=== PATIENT | female | born 1980 | race Caucasian/White ===

== ENCOUNTER 2016-06-29 16:24 | Emergency (ER) | payer OTHER ==
[2016-06-29 16:36] VITALS: BP 133/92; PULSE 78; TEMP 98; BMI 31.7
[2016-06-29] MEDS ORDERED: morphine CARPU-JECT 2 MG/1 ML DISP.SYRIN ONE (16:36)
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
[2016-06-29] MEDS ORDERED: morphine CARPU-JECT 2 MG/1 ML DISP.SYRIN IVPUSH ONE ×2 (16:43→17:35)
[2016-06-29] MEDS ORDERED: IBUPROFEN 600 MG TABLET (FP) PO ONE (18:25)
[2016-06-29] MEDS ORDERED: OXYCODONE/APAP 5/325MG COMBO TABLET PO ONE (19:23)
[2016-06-29] MEDS ORDERED: OXYCODONE/APAP 5/325MG COMBO TABLET ONE (19:25)
[2016-06-29] MEDS ORDERED: ONDANSETRON *ODT* 4 MG TABLET SL ONE (19:29)
[2016-06-29] MEDS ORDERED: ONDANSETRON *ODT* 4 MG TABLET ONE (19:31)
== END 2016-06-29 19:37 | disposition home or self-care (01) ==
LOC: JER 16:24
PROC: 2W39X1Z Immobilization of Left Upper Extremity using Splint (ICD-10-PCS; principal; 2016-06-29)
DX: S52.592A Other fractures of lower end of left radius, initial encounter for closed fracture (principal); W11.XXXA Fall on and from ladder, initial encounter; Y93.89 Activity, other specified; Y92.030 Kitchen in apartment as the place of occurrence of the external cause; Y99.8 Other external cause status
CPT/HCPCS: 29126; 73110-TC-LT; 73130-TC-LT; 99283-25

== ENCOUNTER 2017-06-07 12:23 | Emergency (ER) | payer OTHER ==
[2017-06-07 12:33] VITALS: BP 119/75; PULSE 66; TEMP 98.2; BMI 31.1
[2017-06-07] MEDS ORDERED: ERYTHROMYCIN 0.5% OPHTHALMIC OINTMENT 3.5 GM TUBE OS ONE (13:24)
[2017-06-07] MEDS ORDERED: ERYTHROMYCIN 0.5% OPHTHALMIC OINTMENT 3.5 GM TUBE ONE (13:29)
--- NOTE | 2017-06-07 13:29 | PDOC ---
History of Present Illness - General Chief Complaint: Eye Problem Stated Complaint: EYE PROBLEM Time Seen by Provider: 06/07/17 13:13 History Source: Patient Exam Limitations: No Limitations - History of Present Illness Initial Comments: 06/07/17 13:25 Stye , will continue hot compresses and add erythromycin ointment for lubricating purpose. Timing/Duration: 24 hours Severity: mild, moderate Associated Symptoms: reports: malaise. denies: denies symptoms, fever/chills Past History - Travel Traveled outside of the country in the last 30 days: No Close contact w/someone who was outside of country & ill: No - Past Medical History Allergies/Adverse Reactions: Allergies Allergy/AdvReac Type Severity Reaction Status Date / Time No Known Allergies Allergy Verified 06/07/17 12:31 Home Medications: Ambulatory Orders Erythromycin 0.5% Eye Ointment [Erythromycin 0.5% Eye Ointment -] 1 applic OD TID #1 tube 06/07/17 COPD: No - Surgical History Abdominal Surgery: Yes (diego pa[facility]) Cardiac Surgery: Yes (1) - Suicide/Smoking/Psychosocial Hx Smoking History: Former smoker Have you smoked in the past 12 months: Yes Number of Cigarettes Smoked Daily: 5 If you are a former smoker, when did you quit?: 2018 Information on smoking cessation initiated: Yes 'Breaking Loose' booklet given: 06/07/17 Hx Alcohol Use: No Drug/Substance Use Hx: No Substance Use Type: None Review of Systems - Review of Systems Able to Perform ROS?: Yes Is the patient limited Macedonian proficient: Yes Constitutional: Yes: Symptoms Reported, See HPI, Malaise. No: Fever, Loss of Appetite HEENTM: Yes: Symptoms Reported, See HPI, Eye Pain, Tearing (with tenderness and lesion to right lower lid) Respiratory: No: Symptoms reported Cardiac (ROS): No: Symptoms Reported Integumentary: Yes: Symptoms Reported, See HPI, Erythema All Other Systems: Reviewed and Negative *Physical Exam - Vital Signs Last Vital Signs Temp Pulse Resp BP Pulse Ox 98.2 F 66 18 119/75 100 06/07/17 12:28 06/07/17 12:28 06/07/17 12:28 06/07/17 12:28 06/07/17 12:28 - Physical Exam General Appearance: Yes: Nourished, Appropriately Dressed, Apparent Distress, Mild Distress HEENT: positive: ALEKSANDR, TMs Normal, Pharynx Normal, Nasal Congestion, Other ( stye noted in the inner aspect of right lower lid, that is pointing. Has some mild erythema to the lid, and injection to the area. Has no orbital tenderness, no drainage from eyes or conjunctiva. Vision is within normal limits.) Neck: positive: Normal Thyroid, Supple, Lymphadenopathy (R), Lymphadenopathy (L) Respiratory/Chest: positive: Lungs Clear Gastrointestinal/Abdominal: positive: Soft. negative: Tender Extremity: positive: Normal Capillary Refill, Normal Inspection, Normal Range of Motion Integumentary: positive: Normal Color Neurologic: positive: undraped artist model II-XII NML intact, Fully Oriented, Alert, Normal Mood/ Affect, Normal Response, Motor Strength 5/5 *DC/Admit/Observation/Transfer Diagnosis at time of Disposition: Hordeolum externum of lower eyelid - Discharge Dispostion Disposition: HOME Condition at time of disposition: Stable Admit: No - Referrals Referrals: Rachel Levine MD [Staff Physician] - - Patient Instructions Printed Discharge Instructions: DI for Blepharitis Additional Instructions: Rest, avoid rubbing eyes Wash hands, use eye ointment as directed re-times a day for lubricating purposes , wash hands after use Tylenol or ibuprofen for pain relief Avoid contact with others until redness and discharge is gone from eyes. Followup with ophthalmology in one to 2 days for thorough exam Return to emergency department for worsened pain, swelling, vision problems. - Post Discharge Activity Forms/Work/School Notes: Back to Work
== END 2017-06-07 13:35 | disposition home or self-care (01) ==
LOC: JERFT 12:23
DX: H00.012 Hordeolum externum right lower eyelid (principal)
CPT/HCPCS: 99281-25

== ENCOUNTER 2017-07-23 09:40 | Emergency (ER) | payer OTHER ==
[2017-07-23 09:58] VITALS: BP 118/68; PULSE 81; TEMP 98.6; BMI 31.7
--- NOTE | 2017-07-23 10:27 | PDOC ---
History of Present Illness - General Chief Complaint: Cold Symptoms Stated Complaint: CONGESTION, COLD LIKE SYMPTOMS Time Seen by Provider: 07/23/17 10:14 Exam Limitations: No Limitations - History of Present Illness Initial Comments: 07/23/17 10:23 c/o cough sore throat post nasal drip no fever no chills non smoker Severity: mild Past History - Past Medical History Allergies/Adverse Reactions: Allergies Allergy/AdvReac Type Severity Reaction Status Date / Time No Known Allergies Allergy Verified 07/23/17 09:54 Home Medications: Ambulatory Orders Fluticasone Prop 0.05% Nasal [Flonase -] 1 - 2 spray NS DAILY #1 spray.pump COPD: No Other medical history: DENIES. - Surgical History Abdominal Surgery: Yes (diego paula) Cardiac Surgery: Yes (1) - Suicide/Smoking/Psychosocial Hx Smoking History: Former smoker Have you smoked in the past 12 months: Yes Number of Cigarettes Smoked Daily: 5 If you are a former smoker, when did you quit?: 2018 Information on smoking cessation initiated: No 'Breaking Loose' booklet given: 06/07/17 Hx Alcohol Use: No Drug/Substance Use Hx: No Substance Use Type: None Review of Systems - Review of Systems Able to Perform ROS?: Yes Is the patient limited Pashto proficient: No Constitutional: No: Symptoms Reported HEENTM: Yes: Symptoms Reported Respiratory: Yes: Cough *Physical Exam - Vital Signs Last Vital Signs Temp Pulse Resp BP Pulse Ox 98.6 F 81 19 118/68 99 07/23/17 09:54 07/23/17 09:54 07/23/17 09:54 07/23/17 09:54 07/23/17 09:54 - Physical Exam General Appearance: Yes: Nourished, Appropriately Dressed HEENT: positive: EOMI, ALEKSANDR, Normal ENT Inspection, TMs Normal, Pharyngeal Erythema (post nasal drip ) Neck: positive: Supple. negative: Tender, Lymphadenopathy (R), Lymphadenopathy (L) Respiratory/Chest: positive: Lungs Clear, Normal Breath Sounds. negative: Chest Tender Cardiovascular: positive: Regular Rhythm, Regular Rate Gastrointestinal/Abdominal: positive: Normal Bowel Sounds, Soft Musculoskeletal: positive: Normal Inspection Extremity: positive: Normal Capillary Refill, Normal Inspection, Normal Range of Motion Integumentary: positive: Normal Color, Dry, Warm Neurologic: positive: Fully Oriented, Alert, Normal Mood/Affect, Normal Response , Motor Strength 07/04 Medical Decision Making - Medical Decision Making 07/23/17 10:25 cc: sore throat , post nasal drip cough non smoker no shortness of breath *DC/Admit/Observation/Transfer Diagnosis at time of Disposition: Post-nasal drip - Discharge Dispostion Disposition: HOME Condition at time of disposition: Good - Prescriptions Prescriptions: Fluticasone Prop 0.05% Nasal [Flonase -] 1 - 2 spray NS DAILY #1 spray.pump - Referrals Referrals: ON STAFF,NOT [Primary Care Provider] - - Patient Instructions Printed Discharge Instructions: How to Avoid a Cold or Flu Additional Instructions: gargle with warm salt water tea with honey and lemon drink pleanty of water use flonase as directed follow with your doctor if any worsening symptoms - Post Discharge Activity
== END 2017-07-23 10:39 | disposition home or self-care (01) ==
LOC: JERFT 09:40
DX: J30.9 Allergic rhinitis, unspecified (principal); Z87.891 Personal history of nicotine dependence
CPT/HCPCS: 87070; 87430; 99281-25

== ENCOUNTER 2019-10-09 13:19 | Emergency (ER) | payer OTHER ==
[2019-10-09 13:23] VITALS: BP 139/92; PULSE 93; TEMP 98; BMI 32.1
[2019-10-09] MEDS ORDERED: diazePAM 5 MG TABLET PO ONE (13:30)
[2019-10-09] MEDS ORDERED: KETOROLAC TROMETHAMINE 60 MG/2 ML VIAL IM ONE (13:30)
[2019-10-09] MEDS ORDERED: LIDOCAINE 5% TOPICAL PATCH TP ONE (13:31)
[2019-10-09] MEDS ORDERED: KETOROLAC TROMETHAMINE 60 MG/2 ML VIAL ONE (13:35)
[2019-10-09] MEDS ORDERED: LIDOCAINE 5% TOPICAL PATCH ONE (13:35)
[2019-10-09] MEDS ORDERED: diazePAM 5 MG TABLET ONE (13:35)
--- NOTE | 2019-10-09 14:03 | PDOC ---
History of Present Illness - General Chief Complaint: Head/Neck problem Stated Complaint: NECK PAIN History Source: Patient Exam Limitations: No Limitations - History of Present Illness Initial Comments: 10/09/19 13:41 Patient is a 39-year-old female with history of plastic surgery and complaining of right neck pain radiating down the arm x1 week. Patient states that she woke up one morning with the pain, felt that she slept wrong on her arm. States that the pain was not as severe as today and so she used [id number] pain creams and sprays, hot and cold compresses. States last night that the pain worsened now 9/10 and associated with tingling in the right arm. She is unable to turn the neck to the ipsilateral side. Denies rash, fever, chills. PMHX: as above PSOCHX: FamHX: Noncontributory ALL:NKDA GENERAL/CONSTITUTIONAL: [No fever or chills. No weakness. No weight change.] HEAD, EYES, EARS, NOSE AND THROAT: [No change in vision. No ear pain or discharge. No sore throat.] CARDIOVASCULAR: [No chest pain or shortness of breath.] RESPIRATORY: [No cough, wheezing, or hemoptysis.] GASTROINTESTINAL: [No nausea, vomiting, diarrhea or constipation. No rectal bleeding.] GENITOURINARY: [No dysuria, frequency, or change in urination.] MUSCULOSKELETAL: [(+) joint or muscle swelling or pain. (+) neck or back pain.] SKIN AND BREASTS: [No rash or easy bruising.] NEUROLOGIC: [No headache, vertigo, loss of consciousness, or loss of sensation.] PSYCHIATRIC: [No depression or anxiety.] ENDOCRINE: [No increased thirst. No abnormal weight change.] HEMATOLOGIC/LYMPHATIC: [No anemia, easy bleeding, or history of blood clots.] ALLERGIC/IMMUNOLOGIC: [No hives or skin allergy. No latex allergy.] GENERAL: [The patient is awake, alert, and fully oriented, in moderate acute dis tress, crying.] HEAD: [Normal with no signs of trauma.] EYES: [Pupils equal, round and reactive to light, extraocular movements intact, sclera anicteric, conjunctiva clear.] ENT: [Ears normal, nares patent, oropharynx clear without exudates. Moist mucous membranes.] NECK: [decreased range of motion to neck, (+) tenderness to the right paraspinal muscles, neck supple without lymphadenopathy, JVD, or masses.] LUNGS: [Breath sounds equal, clear to auscultation bilaterally. No wheezes, and no crackles.] HEART: [Regular rate and rhythm, normal S1 and S2 without murmur, rub.] ABDOMEN: [Soft, nontender, normoactive bowel sounds. No guarding, no rebound. No masses.] EXTREMITIES: [Normal range of motion, no edema. No clubbing or cyanosis. No cords, erythema, or tenderness.] NEUROLOGICAL: [Cranial nerves II through XII grossly intact. strength 5/5 b/l, sensory intact, Normal speech, normal gait.] PSYCH: [Normal mood, normal affect.] SKIN: [Warm, Dry, normal turgor, no rashes or lesions noted.] Past History - Medical History Allergies/Adverse Reactions: Allergies Allergy/AdvReac Type Severity Reaction Status Date / Time No Known Allergies Allergy Verified 10/09/19 13:23 Home Medications: Ambulatory Orders Cyclobenzaprine HCl [Flexeril -] 10 mg PO TID #21 tablet 10/09/19 Ibuprofen [Motrin -] 600 mg PO QID #28 tablet 10/09/19 Oxycodone HCl/Acetaminophen [Percocet 5/325 -] 1 tab PO Q4H #15 tablet MDD 6 10/09/19 COPD: No - Surgical History Abdominal Surgery: Yes (diego paula) Cardiac Surgery: Yes (1) - Reproductive History Is Patient Now?: No - Psycho-Social/Smoking History Smoking History: Current every day smoker Have you smoked in the past 12 months: Yes Number of Cigarettes Smoked Daily: 5 If you are a former smoker, when did you quit?: 2018 Information on smoking cessation initiated: No 'Breaking Loose' booklet given: 06/07/17 - Substance Abuse Hx (Audit-C & DAST Scrn) How often the patient has a drink containing alcohol: Never Score: In Men: 4 or > Positive; In Women: 3 or > Positive: 0 Screen Result (Pos requires Nsg. Audit-10AR): Negative *Physical Exam - Vital Signs Last Vital Signs Temp Pulse Resp BP Pulse Ox 98 F 93 H 18 139/92 100 10/09/19 13:21 10/09/19 13:21 10/09/19 13:21 10/09/19 13:21 10/09/19 13:21 ED Treatment Course - LABORATORY CBC & Chemistry Diagram: 10/09/19 02:29 10/09/19 14:40 Medical Decision Making - Medical Decision Making 10/09/19 13:41 Patient is a 39-year-old female with history of plastic surgery and complaining of right neck pain radiating down the arm x1 week. Patient states that she woke up one morning with the pain, felt that she slept wrong on her arm. States that the pain was not as severe as today and so she used [id number] pain creams and sprays, hot and cold compresses. States last night that the pain worsened now 11/09 and associated with tingling in the right arm. She is unable to turn the neck to the ipsilateral side. Denies rash, fever, chills. Symptoms consistent with muscle spasm to the neck, cervical radicular pain. Trial with Lidoderm patch, Toradol 30 mg IM, Valium 5 mg p.o. warm compress. Reassess. 10/09/19 14:51 Called by patient's boyfriend, found patient screaming in pain. IV line established, bloods drawn and written for morphine 4 mg IV. X-ray cervical spine Will reassess X-ray reviewed no acute fracture. 10/09/19 16:23 Patient feels improved requesting to be discharged home. She has full range of motion of the neck. I discussed the physical exam findings, ancillary test results and final diagnoses with the patient. I answered all of the patient's questions. The patient was satisfied with the care received and felt comfortable with the dis charge plan and treatment plan. The Patient agrees to follow up with the primary care physician within 24-72 hours. Discharge - Discharge Information Problems reviewed: Yes Clinical Impression/Diagnosis: Muscle spasms of neck Condition: Stable Disposition: HOME - Additional Discharge Information Prescriptions: Cyclobenzaprine HCl [Flexeril -] 10 mg PO TID #21 tablet Ibuprofen [Motrin -] 600 mg PO QID #28 tablet Oxycodone HCl/Acetaminophen [Percocet 5/325 -] 1 tab PO Q4H #15 tablet MDD 6 - Follow up/Referral Referrals: Elbert Cheney [Primary Care Provider] - - Patient Discharge Instructions Patient Printed Discharge Instructions: DI for Neck Pain Additional Instructions: Follow-up with your primary care doctor in 1 to 2 days. Return to the emergency room for worsening symptoms. Use some warm compresses on the neck in 20-minute intervals. Neck massages. - Post Discharge Activity
[2019-10-09] MEDS ORDERED: morphine CARPU-JECT 4 MG/1 ML DISP.SYRIN IVPUSH ONE (14:28)
[2019-10-09] MEDS ORDERED: morphine SULFATE 4 MG/ML VIAL ONE (14:41)
[2019-10-09 14:51] LABS: BASO % 0.5 % (0-2.0); EOS % 0.4 % (0-4.5); HEMATOCRIT 32.2 % (32.4-45.2); HEMOGLOBIN 10.2 GM/dL (10.7-15.3); MCH 23.3 pg (25.7-33.7); MCHC 31.7 g/dl (32.0-36.0); MEAN CELL VOLUME 73.6 fl (80-96); MEAN PLT VOLUME 7.1 fl (7.5-11.1); MONO % 5.3 % (3.8-10.2); NEUT % 77.8 % (42.8-82.8); PLATELET COUNT 370 K/MM3 (134-434); RBC 4.38 M/mm3 (3.60-5.2); RDW 17.5 % (11.6-15.6); WHITE BLOOD COUNT 6.7 K/mm3 (4.0-10.0)
[2019-10-09 15:38] LABS: ANION GAP 8 MMOL/L (8-16); BLOOD UREA NITROGEN 11.7 mg/dL (7-18); CALCIUM 8.3 mg/dL (8.5-10.1); CHLORIDE 106 mmol/L (98-107); CO2 23 mmol/L (21-32); CREATININE 0.8 mg/dL (0.55-1.3); GLUCOSE,RANDOM 86 mg/dL (74-106); POTASSIUM 4.1 mmol/L (3.5-5.1); SODIUM 137 mmol/L (136-145)
[2019-10-09] MEDS ORDERED: LIDOCAINE PATCH REMOVAL MC SCH (22:00)
== END 2019-10-09 16:55 | disposition home or self-care (01) ==
LOC: JERFT 13:19
PROC: 3E033GC Introduction of Other Therapeutic Substance into Peripheral Vein, Percutaneous Approach (ICD-10-PCS; principal; 2019-10-09)
PROC: 3E023GC Introduction of Other Therapeutic Substance into Muscle, Percutaneous Approach (ICD-10-PCS; principal; 2019-10-09)
DX: M62.838 Other muscle spasm (principal)
CPT/HCPCS: 36415; 72040-TC; 80048; 84702; 85025; 99284-25